=== PATIENT | female | born 1945 | race African-American/Black ===

== ENCOUNTER 2018-07-26 17:05 | Emergency (ER) | payer OTHER ==
[2018-07-26 17:25] VITALS: BP 178/76; PULSE 68; TEMP 98.5; BMI 35.4
--- NOTE | 2018-07-26 17:26 | PDOC ---
Rapid Medical Evaluation Time Seen by Provider: 07/26/18 17:21 Medical Evaluation: Allergies Allergy/AdvReac Type Severity Reaction Status Date / Time No Known Allergies Allergy Verified 07/26/18 17:21 07/26/18 17:21 Pt presents to the ED with b/l rib/ upper back pain. Pt states the pain started last night. She states that the pain was unprovoked and now it increases when she takes a big breath. Pt is hypertensive in triage, but states that she forgot to take her blood pressure medication. Exam: RRR, pain in back not reproducible with palpation Orders: EKG Pt to proceed to the ED for further evaluation Discharge Disposition - Diagnosis Back pain - Referrals - Patient Instructions - Post Discharge Activity
--- NOTE | 2018-07-26 18:14 | PDOC ---
History of Present Illness - General Chief Complaint: Pain Stated Complaint: RIB PAIN Time Seen by Provider: 07/26/18 17:21 History Source: Patient Exam Limitations: Clinical Condition - History of Present Illness Initial Comments: 07/26/18 18:08 Patient with no sig Past medical history present for evaluation of bilateral which is worse with deep breathing since this morning after doing water aerobic exercise. Denies chest pain, shortness of breath now, dizziness, nausea or vomiting or sweats. Patient describes pain as cramping and tightness of the muscles of bilateral ribs and mid back Timing/Duration: 4-6 hours Past History - Past Medical History Allergies/Adverse Reactions: Allergies Allergy/AdvReac Type Severity Reaction Status Date / Time No Known Allergies Allergy Verified 07/26/18 17:21 Home Medications: Ambulatory Orders Amlodipine Besylate [Norvasc -] 5 mg PO HS 02/21/14 Methocarbamol [Robaxin -] 500 mg PO BID PRN #14 tablet 07/26/18 Naproxen 500 mg PO BID PRN #20 tablet 07/26/18 COPD: No HTN: Yes - Suicide/Smoking/Psychosocial Hx Smoking History: Never smoked Have you smoked in the past 12 months: No Hx Alcohol Use: No Drug/Substance Use Hx: No Substance Use Type: None Review of Systems - Review of Systems Able to Perform ROS?: Yes Is the patient limited [place] proficient: No Constitutional: No: Chills, Fever, Malaise HEENTM: No: Symptoms Reported Respiratory: No: Cough, Orthopnea, Shortness of Breath, SOB with Exertion, SOB at Rest, Stridor, Wheezing, Productive cough, Hemoptysis, Other Cardiac (ROS): No: Chest Pain, Irregular Heart Rate, Lightheadedness, Palpitations, Syncope, Chest Tightness ABD/GI: No: Nausea, Vomiting Musculoskeletal: Yes: Back Pain (mid-back ), Muscle Pain (b/l ribs). No: Joint Swelling, Muscle Weakness, Joint Stiffness All Other Systems: Reviewed and Negative *Physical Exam - Vital Signs Last Vital Signs Temp Pulse Resp BP Pulse Ox 98.5 F 68 19 178/76 96 07/26/18 17:21 07/26/18 17:21 07/26/18 17:21 07/26/18 17:21 07/26/18 17:21 - Physical Exam Comments: 07/26/18 18:11 GENERAL: Well developed, well nourished. Awake and alert. No acute distress. CARDIOVASCULAR: Regular rate and rhythm. No murmurs, rubs, or gallops. Distal pulses are 2+ and symmetric. PULMONARY: No evidence of respiratory distress. Lungs clear to auscultation bilaterally. No wheezing, rales or rhonchi. ABDOMINAL: Soft. Non-tender. Non-distended. No rebound or guarding. No organomegaly. Normoactive bowel sounds MUSCULOSKELETAL : mild tenderness over posterior paravertebral muscle or thoracic spine of T8-T10 on bilateral sides. No bony deformities EXTREMITIES: No cyanosis. No clubbing. No edema. No calf tenderness. SKIN: Warm and dry. Normal capillary refill. No rashes. No jaundice. NEUROLOGICAL: Alert, awake, appropriate. No motor deficits in the lower extremities. Gait is normal without ataxia. PSYCHIATRIC: Cooperative. Good eye contact. Appropriate mood and affect. General Appearance: Yes: Nourished, Appropriately Dressed. No: Apparent Distress ED Treatment Course - RADIOLOGY Radiology Studies Ordered: Category Date Time Status RIBS BILATERAL [RAD] Stat Radiology 07/26/18 18:06 Ordered Medical Decision Making - Medical Decision Making 07/26/18 18:14 Patient with no sig Past medical history present with complain of bilateral ribs and mid back pain after doing water aerobic exercise this morning. Patient with no evidence of distress and denies any cardiac symptoms. Clinical exam unremarkable. X-ray of rib series ordered to rule out acute pathology. Symptoms likely muscle strain and will be treated NSAIDs and muscle relaxer if negative x -rays. 07/26/18 18:43 Rib series x-ray with no acute findings. Symptoms likely muscle strain. Patient with no evidence of cardiac distress and stable for home discharge on NSAIDs or muscle relaxer *DC/Admit/Observation/Transfer Diagnosis at time of Disposition: Myalgia Back pain Qualifiers: Back pain location: thoracic back pain Chronicity: acute Back pain laterality: bilateral Qualified Code(s): M54.6 - Pain in thoracic spine - Discharge Dispostion Disposition: HOME Condition at time of disposition: Stable Decision to Admit order: No - Prescriptions Prescriptions: Methocarbamol [Robaxin -] 500 mg PO BID PRN #14 tablet PRN Reason: Back Pain Naproxen 500 mg PO BID PRN #20 tablet PRN Reason: Back Pain - Referrals Referrals: Blanca Bobby MD [Primary Care Provider] - - Patient Instructions Printed Discharge Instructions: DI for Back Spasm Additional Instructions: Take prescribed medication as needed for pain and spasm., To emergency room if worsening symptoms of shortness of breath, chest pain, vomiting or dizziness - Post Discharge Activity
== END 2018-07-26 18:50 | disposition home or self-care (01) ==
LOC: JERFT 17:05
DX: S29.012A Strain of muscle and tendon of back wall of thorax, initial encounter (principal); X50.0XXA Overexertion from strenuous movement or load, initial encounter; Y93.14 Activity, water aerobics and water exercise; Y92.34 Swimming pool (public) as the place of occurrence of the external cause; Y99.8 Other external cause status
CPT/HCPCS: 71111-TC-FY; 99281-25

== ENCOUNTER 2021-08-21 09:40 | Emergency (ER) | payer OTHER ==
[2021-08-21 10:00] VITALS: TEMP 97.7; BMI 35.2
[2021-08-21 11:50] LABS: BASO % 0.9 % (0-2.0); EOS % 1.5 % (0-4.5); HEMATOCRIT 41.6 % (32.4-45.2); HEMOGLOBIN 14.1 GM/dL (10.7-15.3); LYMPH % 27.3 % (8-40); MCH 29.9 pg (25.7-33.7); MEAN PLT VOLUME 8.1 fl (7.5-11.1); MONO % 6.7 % (3.8-10.2); NEUT % 63.6 % (42.8-82.8); PLATELET COUNT 217 10^3/uL (134-434); RBC 4.72 M/mm3 (3.60-5.2); RDW 14.3 % (11.6-15.6)
[2021-08-21 12:17] LABS: PH,URINE 6.5 (5.0-8.0); URINE APPEARANCE CLEAR; URINE BILIRUBIN NEGATIVE (NEGATIVE); URINE COLOR YELLOW; URINE GLUCOSE (UA) NEGATIVE (NEGATIVE); URINE KETONE NEGATIVE (NEGATIVE); URINE LEUK ESTERASE NEGATIVE (NEGATIVE); URINE NITRITE NEGATIVE (NEGATIVE); URINE PROTEIN NEGATIVE (NEGATIVE); URINE UROBILINOGEN 0.2 mg/dL (0.2-1.0)
[2021-08-21 12:20] LABS: CHLORIDE 108 mmol/L (98-107); SODIUM 141 mmol/L (136-145)
[2021-08-21 12:24] LABS: ALBUMIN 4.2 g/dl (3.4-5.0); ANION GAP 6 MMOL/L (8-16); BLOOD UREA NITROGEN 9.6 mg/dL (7-18); CALCIUM 9.6 mg/dL (8.5-10.1); CO2 27 mmol/L (21-32); GLUCOSE,RANDOM 99 mg/dL (74-106)
[2021-08-21 12:27] LABS: CREATININE 0.8 mg/dL (0.55-1.3); SGOT/AST 22 U/L (15-37); SGPT/ALT 29 U/L (13-61)
[2021-08-21 12:28] LABS: BILIRUBIN,TOTAL 0.5 mg/dL (0.2-1)
[2021-08-21 12:29] LABS: ALK PHOS 97 U/L (45-117)
[2021-08-21 12:30] LABS: N-TERMINAL BNP 49.2 pg/ml (5-125)
[2021-08-21 13:56] VITALS: BP 151/60; PULSE 55
== END 2021-08-21 13:57 | disposition home or self-care (01) ==
LOC: JER 09:40
DX: R53.83 Other fatigue (principal); M79.604 Pain in right leg; M79.605 Pain in left leg
CPT/HCPCS: 36415; 71045-TC-FY; 80053; 81003; 83880; 84484; 85025; 87086; 87804; 93005; 93010; 93970-TC; 99285-25; C9803; U0003; U0005

== ENCOUNTER 2023-10-01 10:57 | Observation (INO) | payer OTHER ==
[2023-10-01 11:04] VITALS: BMI 40.7
[2023-10-01 13:07] LABS: BASO % 0.4 % (0-2.0); EOS % 4.8 % (0-4.5); LYMPH % 27.9 % (8-40); MCHC 34.1 g/dl (32.0-36.0); MEAN CELL VOLUME 87.9 fl (80-96); MEAN PLT VOLUME 8.5 fl (7.5-11.1); MONO % 8.5 % (3.8-10.2); NEUT % 58.4 % (42.8-82.8); PLATELET COUNT 215 10^3/uL (134-434); RBC 4.33 M/mm3 (3.60-5.2); RDW 13.9 % (11.6-15.6); WHITE BLOOD COUNT 5.4 K/mm3 (4.0-10.0)
[2023-10-01 13:13] LABS: INR 1.1 (0.83-1.09); PROTHROMBIN TIME (PATIENT) 12.8 SEC (9.7-13.0)
[2023-10-01 13:15] LABS: ACTIVATED PTT 28.9 SECONDS (25.2-36.5)
[2023-10-01 13:19] LABS: POTASSIUM 3.9 mmol/L (3.5-5.1)
[2023-10-01 13:22] LABS: ALBUMIN 3.7 g/dl (3.4-5.0); CALCIUM 9.1 mg/dL (8.5-10.1)
[2023-10-01 13:26] LABS: CREATININE 0.9 mg/dL (0.55-1.3)
[2023-10-01 13:27] LABS: BILIRUBIN,TOTAL 0.4 mg/dL (0.2-1); TOT PROT 7.8 g/dl (6.4-8.2)
[2023-10-01] MEDS: amLODIPine BESYLATE 10 MG TABLET (FP) PO SCH (22:02)
[2023-10-02 09:37] LABS: BASO % 0.6 % (0-2.0); EOS % 6.2 % (0-4.5); HEMATOCRIT 37.6 % (32.4-45.2); HEMOGLOBIN 12.5 GM/dL (10.7-15.3); LYMPH % 26.1 % (8-40); MCH 29.7 pg (25.7-33.7); MCHC 33.3 g/dl (32.0-36.0); MEAN CELL VOLUME 89.3 fl (80-96); MEAN PLT VOLUME 8.2 fl (7.5-11.1); NEUT % 60.1 % (42.8-82.8); PLATELET COUNT 211 10^3/uL (134-434); RBC 4.21 M/mm3 (3.60-5.2); RDW 13.6 % (11.6-15.6); WHITE BLOOD COUNT 5.7 K/mm3 (4.0-10.0)
[2023-10-02 09:45] LABS: POTASSIUM 3.7 mmol/L (3.5-5.1)
[2023-10-02 09:48] LABS: ALBUMIN 3.3 g/dl (3.4-5.0)
[2023-10-02 09:49] LABS: CALCIUM 8.6 mg/dL (8.5-10.1)
[2023-10-02 09:51] LABS: CREATININE 0.9 mg/dL (0.55-1.3)
[2023-10-02 09:53] LABS: TOT PROT 7.2 g/dl (6.4-8.2)
[2023-10-02 09:55] LABS: BILIRUBIN,TOTAL 0.7 mg/dL (0.2-1)
[2023-10-02] MEDS: amLODIPine BESYLATE 10 MG TABLET (FP) PO SCH ×2 (16:41→21:11)
[2023-10-02 23:42] VITALS: RESP 20
[2023-10-03 02:25] VITALS: TEMP 97.7
[2023-10-03 05:40] VITALS: BP 140/59; PULSE 55
[2023-10-03] MEDS ORDERED: LOSARTAN POTASSIUM 25 MG TABLET PO ONE (06:29)
== END 2023-10-03 13:27 | disposition home or self-care (01) ==
LOC: JER 10:57 → JERBED 15:49 → J4W 21:26
PROVIDERS: ADMIT Internal Medicine; ATTEND Internal Medicine
DX: R07.9 Chest pain, unspecified (principal); I10 Essential (primary) hypertension; E78.5 Hyperlipidemia, unspecified; F41.9 Anxiety disorder, unspecified; R61 Generalized hyperhidrosis
CPT/HCPCS: 36415; 71045-TC-FY; 71250-TC; 80053; 82550; 82962; 84443; 84484; 85025; 85610; 85730; 93005; 93010; 99285-25; G0378

== ENCOUNTER 2024-04-18 21:45 | Emergency (ER) | payer OTHER ==
[2024-04-18 21:49] VITALS: BP 186/70; PULSE 65; RESP 18; TEMP 98.1; BMI 34.4
[2024-04-18 22:33] LABS: EPI CELLS >36 /uL (0-25.1); HYALINE CASTS 4 /uL (0-3.1); PH,URINE 5.5 (5.0-8.0); URINE APPEARANCE CLOUDY; URINE BACTERIA 2230 /uL (0-1359); URINE BILIRUBIN 1+ (NEGATIVE); URINE COLOR DK YELLOW; URINE GLUCOSE (UA) NEGATIVE (NEGATIVE); URINE KETONE TRACE (NEGATIVE); URINE LEUK ESTERASE NEGATIVE (NEGATIVE); URINE NITRITE NEGATIVE (NEGATIVE); URINE PROTEIN 1+ (NEGATIVE); URINE RBC 38 /uL (0-23.9); URINE WBC 41 /uL (0-25.8)
[2024-04-18 23:59] LABS: BASO % 0.6 % (0-2.0); EOS % 4.9 % (0-4.5); HEMATOCRIT 38.1 % (32.4-45.2); HEMOGLOBIN 12.8 GM/dL (10.7-15.3); LYMPH % 27.1 % (8-40); MCHC 33.7 g/dl (32.0-36.0); MEAN CELL VOLUME 89.2 fl (80-96); MEAN PLT VOLUME 8.3 fl (7.5-11.1); MONO % 7.4 % (3.8-10.2); PLATELET COUNT 204 10^3/uL (134-434); RBC 4.27 M/mm3 (3.60-5.2); RDW 13.7 % (11.6-15.6); WHITE BLOOD COUNT 6.7 K/mm3 (4.0-10.0)
[2024-04-19 00:17] LABS: POTASSIUM 3.8 mmol/L (3.5-5.1)
[2024-04-19 00:19] LABS: ALBUMIN 3.8 g/dl (3.4-5.0); MAGNESIUM 2.1 mg/dL (1.8-2.4)
[2024-04-19 00:20] LABS: BLOOD UREA NITROGEN 11.8 mg/dL (7-18)
[2024-04-19 00:23] LABS: CREATININE 0.9 mg/dL (0.55-1.3)
[2024-04-19 00:24] LABS: BILIRUBIN,TOTAL 0.5 mg/dL (0.2-1)
== END 2024-04-19 00:44 | disposition home or self-care (01) ==
LOC: JER 21:45
DX: R53.1 Weakness (principal); R53.83 Other fatigue; R42 Dizziness and giddiness; R11.0 Nausea; Z20.822 Contact with and (suspected) exposure to COVID-19
CPT/HCPCS: 0241U-QW; 36415; 71046-TC-FY; 80053; 81003; 83735; 84443; 84484; 85025; 93005; 93010; 99285-25